=== PATIENT | female | born 1970 | race Caucasian/White ===

== ENCOUNTER 2016-03-27 13:41 | Emergency (ER) | payer OTHER ==
--- NOTE | 2016-03-27 15:07 | NUR ---
PATIENT CALLED FROM LOBBY FOR TRIAGE NO ANSWER NO FURTHER CARE RENDERED PATIENT IS LWBS.
== END 2016-03-27 15:25 | disposition left against medical advice (07) ==
LOC: MED 13:41
DX: M54.9 Dorsalgia, unspecified (principal); Z53.21 Procedure and treatment not carried out due to patient leaving prior to being seen by health care provider

== ENCOUNTER 2017-07-17 16:12 | Emergency (ER) | payer OTHER ==
[~2017-07-17] VITALS: Ht 162.6 cm; Wt 106.2 kg
[2017-07-17 16:22] VITALS: BP 140/74
--- NOTE | 2017-07-17 17:00 | NUR ---
PT AMBULATES TO BED 11
--- NOTE | 2017-07-17 17:02 | NUR ---
REPORT GIVEN TO PING ROMO
--- NOTE | 2017-07-17 17:10 | NUR ---
BIB DAUGHTER WITH C/O LOWER ABDOMINAL PAIN AND BACK PAIN SINCE MONDAY, STARTED ABDOMINAL CRAMPING AT 1200 TODAY; DENIES NVD. PATIENT POSITIONED FOR COMFORT; HOB ELEVATED; BEDRAILS UP X1; BED DOWN. ER MD MADE AWARE OF PT STATUS.
[2017-07-17] MEDS ORDERED: KETOROLAC 60 MG/2 ML VIAL IM ONE (18:15)
[2017-07-17] MEDS ORDERED: cefTRIAXone 1,000 MG in LIDOCAINE 1% ***ER ONLY *** 2.1 ML IM ONE (18:15)
[2017-07-17] MEDS ORDERED: LEVOFLOXACIN 500 MG TAB PO ONE (18:15)
[2017-07-17 18:27] LABS: APPEARANCE,URINE HAZY (CLEAR); BILIRUBIN,URINE NEGATIVE (NEGATIVE); BLOOD, URINE 3+ (NEGATIVE); LEUKOCYTE ESTERASE ,URINE 3+ (NEGATIVE); NITRITE, URINE NEGATIVE (NEGATIVE); PH,URINE 6.5 (5.0-9.0); UGLUCOSE NEGATIVE (NEGATIVE)
[2017-07-17] MEDS ORDERED: LIDOCAINE 1% 50 ML ONE (18:28)
[2017-07-17] MEDS ORDERED: cefTRIAXone 1,000 MG VIAL ONE (18:28)
[2017-07-17 18:34] LABS: COLOR,URINE STRAW (YELLOW)
[2017-07-17 18:38] LABS: RBC,URINE 0-5 (RARE) /HPF (0-5)
[2017-07-17 18:39] LABS: WBC,URINE TOO MANY TO COUNT /HPF (0-5)
--- NOTE | 2017-07-17 19:14 | NUR ---
RECEIVED REPORT FROM ABY NURSE.
--- NOTE | 2017-07-17 19:15 | NUR ---
PT RESTING IN BED COMFORTABLY, PT REPORTS RELIEF OF PAIN ON LOWER ABD, REPORTS TOLERABLE CRAMPING PAIN ON LOWER BACK. RR EVEN AND UNLABORED, ALL NEEDS MET AT THIS TIME.
[2017-07-17 19:45] VITALS: BP 143/79
--- NOTE | 2017-07-17 19:46 | NUR ---
Patient discharged with v/s stable. Written and verbal after care instructions given and explained. Patient alert, oriented and verbalized understanding of instructions. Ambulatory with steady gait. All questions addressed prior to discharge. ID band removed. Patient advised to follow up with PMD. Rx of LEVAQUIN 250MG, PHENAZOPYRIDINE 200MG given. Patient educated on indication of medication including possible reaction and side effects. Opportunity to ask questions provided and answered.
== END 2017-07-17 19:46 | disposition home or self-care (01) ==
LOC: MED 16:12
DX: N39.0 Urinary tract infection, site not specified (principal); E11.9 Type 2 diabetes mellitus without complications; I10 Essential (primary) hypertension; Z88.1 Allergy status to other antibiotic agents
CPT/HCPCS: 81001; 81025; 87086; 96372; 99284; J0696; J1885; J2001; 87186

== ENCOUNTER 2017-08-18 20:49 | Emergency (ER) | payer OTHER ==
[~2017-08-18] VITALS: Ht 162.6 cm; Wt 105.5 kg
[2017-08-18 20:55] VITALS: BP 124/70
--- NOTE | 2017-08-18 20:55 | NUR ---
PATIENT TRIAGED. VSS STABLE. SENT TO ER LOBBY.
--- NOTE | 2017-08-19 00:26 | NUR ---
PT AMB W/O ASST TO ER BED 7
--- NOTE | 2017-08-19 00:30 | NUR ---
46/F CAME IN W C/O DYSURIA X MONDAY. REPORTS RT FLANK PAIN AND SUPRAPUBIC TENDERNESS X MONDAY. REPORTS CHILLS AND NAUSEA. DENIES HEMATURIA, FEVER, V/D. PMH: DM, REPORTS SHE TOOK PYRIDIUM YESTERDAY FROM PREVIOUS RX WITHOUT RELIEF OF SX
[2017-08-19 00:55] LABS: APPEARANCE,URINE CLEAR (CLEAR); BILIRUBIN,URINE NEGATIVE (NEGATIVE); BLOOD, URINE TRACE-I (NEGATIVE); COLOR,URINE YELLOW (YELLOW); LEUKOCYTE ESTERASE ,URINE 2+ (NEGATIVE); NITRITE, URINE POSITIVE (NEGATIVE); PH,URINE 6.5 (5.0-9.0); UGLUCOSE NEGATIVE (NEGATIVE)
[2017-08-19 01:14] LABS: RBC,URINE 0-5 (RARE) /HPF (0-5); WBC,URINE 60-80 /HPF (0-5)
[2017-08-19] MEDS ORDERED: NACL 0.9% 1,000 ML IV SCH (02:57)
[2017-08-19] MEDS ORDERED: ONDANSETRON 4 MG/2 ML VIAL IVP ONE (03:00)
[2017-08-19] MEDS ORDERED: cefTRIAXone 1,000 MG VIAL ONE (03:22)
--- NOTE | 2017-08-19 03:43 | NUR ---
PT RETURN FROM RADIOLOGY
[2017-08-19 03:44] LABS: BASOPHILS % (AUTO) 0.4 % (0.0-2.0); EOSINOPHILS # (AUTO) 0.1 K/uL (0-0.4); EOSINOPHILS % (AUTO) 1.9 % (0.0-4.0); HEMATOCRIT 38.8 % (36-48); HEMOGLOBIN 13.1 g/dL (12.0-16.0); LYMPHOCYTES # (AUTO) 2.3 K/uL (2.5-16.5); LYMPHOCYTES % (AUTO) 32.2 % (20.5-51.1); MEAN CORPUSCULAR HEMOGLOBIN 28 pg (27-31); MEAN CORPUSCULAR HGB CONC 34 g/dL (33-37); MEAN CORPUSCULAR VOLUME 83.2 fL (80-94); MONOCYTES # (AUTO) 0.4 K/uL (0.8-1.0); MONOCYTES % (AUTO) 5.6 % (1.7-9.3); NEUTROPHILS # (AUTO) 4.3 K/uL (1.8-7.7); NEUTROPHILS % (AUTO) 59.9 % (42.2-75.2); PLATELET COUNT (AUTO) 262 K/uL (140-450); RED BLOOD CELL COUNT(AUTO) 4.67 MIL/uL (4.20-5.40); RED CELL DISTRIBUTION WIDTH 14.3 % (11.6-13.7); WHITE BLOOD COUNT (AUTO) 7.1 K/uL (4.8-10.8)
[2017-08-19 04:04] LABS: ANION GAP 11.1 (8-16); CARBON DIOXIDE 29.4 mmol/L (21-32); CREATININE 1.1 mg/dL (0.6-1.3); POTASSIUM 4.5 mmol/L (3.5-5.1)
[2017-08-19 04:10] LABS: ALBUMIN 3.7 g/dL (3.4-5.0); TOTAL BILIRUBIN 0.2 mg/dL (0.0-1.0)
[2017-08-19 05:52] VITALS: BP 124/70
--- NOTE | 2017-08-19 05:52 | NUR ---
DPatient discharged with v/s stable. Written and verbal after care instructions given and explained. Patient alert, oriented and verbalized understanding of instructions. Ambulatory with steady gait. All questions addressed prior to discharge. ID band removed. Patient advised to follow up with PMD. Rx of Ibuprofen, MiraLax, Cipro given. Patient educated on indication of medication including possible reaction and side effects. Opportunity to ask questions provided and answered.
== END 2017-08-19 05:52 | disposition home or self-care (01) ==
LOC: MED 20:49
DX: R30.0 Dysuria (principal); M54.9 Dorsalgia, unspecified; R68.83 Chills (without fever); E11.9 Type 2 diabetes mellitus without complications; I10 Essential (primary) hypertension; Z88.8 Allergy status to other drugs, medicaments and biological substances
CPT/HCPCS: 36415; 74176; 80053; 81001; 81025; 85025; 87086; 87186; 96365; 96375; 99285; J0696; J2405; J7030